=== PATIENT | female | born 1940 | race Two or more races ===

== ENCOUNTER 2023-06-23 06:05 | Day surgery (SDC) | payer OTHER | END 2023-06-23 19:10 | disposition home or self-care (01) | LOC: CIR.AMB 06:05 | PROVIDERS: ATTEND Colon & Rectal Surgery | DX: D12.9 Benign neoplasm of anus and anal canal (principal); K62.89 Other specified diseases of anus and rectum; D12.8 Benign neoplasm of rectum; Z86.010 Personal history of colon polyps; Z88.0 Allergy status to penicillin; Z91.010 Allergy to peanuts; Z91.013 Allergy to seafood; Z91.041 Radiographic dye allergy status; I10 Essential (primary) hypertension ==